=== PATIENT | female | born 1960 ===

== ENCOUNTER 2017-01-07 06:22 | Observation (INO) | payer OTHER ==
[2017-01-07 06:29] VITALS: BMI 37.8
[2017-01-07] MEDS ORDERED: Bupivacaine 0.5% Inj(30mL) ONE (07:13)
[2017-01-07] MEDS ORDERED: Thrombin Topical 5,000 IU Spray Kit ONE (07:13)
[2017-01-07] MEDS ORDERED: MethylPREDNISolone Depo 40 mg/ml Inj ONE (07:13)
[2017-01-07] MEDS ORDERED: Lidocaine 2% w Epi 1:100,000 Inj IJ ONE (07:13)
[2017-01-07] MEDS ORDERED: Liquid Adhesive TOP ONE (07:13)
[2017-01-07] MEDS ORDERED: Propofol 10 mg/ml Inj (20 ML) ONE (07:26)
[2017-01-07] MEDS ORDERED: Tranexamic Acid 1,000 MG in Sodium Chloride 0.9% 100 ML IVPB ONE (07:43)
[2017-01-07] MEDS ORDERED: Propofol 10 mg/ml Inj (100 ml) IV SCH (07:45)
[2017-01-07] MEDS ORDERED: Lactated Ringer's 1,000 ML IV ONE ×3 (08:55→12:45)
[2017-01-07] MEDS ORDERED: Succinylcholine 200 mg/10 ml Inj IV ONE (08:58)
[2017-01-07] MEDS ORDERED: Midazolam 2 MG/2 ML VIAL ONE ×2 (08:58→11:26)
[2017-01-07] MEDS ORDERED: Propofol 10 mg/ml Inj (100 ml) ONE (09:00)
[2017-01-07] MEDS ORDERED: Thrombin Topical 5,000 IU Spray Kit TOP ONE (11:06)
[2017-01-07] MEDS ORDERED: Vancomycin 1 g Inj IVPB ONE (11:06)
[2017-01-07] MEDS ORDERED: Absorbable Gelatin Sponge Size 100 TP ONE (11:06)
--- NOTE | 2017-01-07 11:21 | CARD ---
APPROVED REPORT EKG Measurement Heart [id number] <Conclusion> Normal sinus rhythm Normal ECG
[2017-01-07] MEDS ORDERED: MethylPREDNISolone Depo 40 mg/ml Inj IM ONE (12:40)
[2017-01-07] MEDS ORDERED: Bupivacaine 0.5% 50 ML IJ ONE (12:40)
[2017-01-07] MEDS ORDERED: Naloxone 0.4 mg/ml Inj (Adult) ONE (12:59)
[2017-01-07] MEDS ORDERED: HYDROmorphone 0.5 mg/0.5 ml ISec IVP PRN (13:17)
[2017-01-07] MEDS ORDERED: Lactated Ringer's 1,000 ML IV SCH (13:17)
[2017-01-07] MEDS ORDERED: Oxycodone/Acetaminophen 5/325 mg Tab PO PRN (13:54)
[2017-01-07] MEDS ORDERED: Pneumococcal 23-Valent Vaccine IM ONE (18:00)
[2017-01-07] MEDS: ceFAZolin 1 GM in Sodium Chloride 0.9% 100 ML IVPB SCH (18:20)
[2017-01-07] MEDS: Sodium Chloride 0.9% 1,000 ML IV SCH (20:25)
[2017-01-08] MEDS: ceFAZolin 1 GM in Sodium Chloride 0.9% 100 ML IVPB SCH (00:13)
[2017-01-08] MEDS: Sodium Chloride 0.9% 1,000 ML IV SCH (00:15)
[2017-01-08 07:29] LABS: ALB/GLOB RATIO 1.3 (1.0-2.1); ALKALINE PHOSPHATASE 49 U/L (38-126); ALT/SGPT 28 U/L (9-52); AST/SGOT 25 U/L (14-36); BILIRUBIN,TOTAL 0.6 mg/dl (0.2-1.3); BLOOD UREA NITROGEN 7 mg/dl (7-17); CARBON DIOXIDE 24 mmol/L (22-30); CHLORIDE 103 mmol/L (98-107); GFR AFRICAN-AMERICAN > 60; GLUCOSE,RANDOM 132 mg/dL (65-105); POTASSIUM 3.8 MMOL/L (3.6-5.0); SODIUM 137 mmol/l (132-148)
[2017-01-08 07:45] VITALS: BP 122/75; PULSE 78; RESP 20; TEMP 99.2; O2SAT 93
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
--- NOTE | 2017-01-11 11:05 | RAD ---
PROCEDURE: INTRAOPERATIVE FLUOROSCOPY HISTORY: ANTERIOR CERVICAL DISCECTOMY WITH FUSION COMPARISON: None TECHNIQUE: Intraoperative fluoroscopy was provided to the referring physician cyst in apparent cervical discectomy with fusion. FINDINGS: Two spot films fluoroscopic images submitted performed during the procedure demonstrating anterior approach to discectomy and cervical spinal fusion. Please see operative report for further detail. 6.6 seconds of fluoroscopy was utilized with a total radiation dose of 0.3 mGy utilized. IMPRESSION: Please see operative report for further detail.
== END 2017-01-08 12:13 | disposition home or self-care (01) ==
LOC: H.OPSURG 06:22 → H.MEDSURG1 13:54
PROVIDERS: ADMIT Orthopaedic Surgery Orthopaedic Surgery of the Spine; ATTEND Orthopaedic Surgery Orthopaedic Surgery of the Spine
DX: M50.221 Other cervical disc displacement at C4-C5 level (principal); E11.9 Type 2 diabetes mellitus without complications; G40.909 Epilepsy, unspecified, not intractable, without status epilepticus; Z23 Encounter for immunization
CPT/HCPCS: 36415; 63075; 63076; 80053; 82948; 86850; 86900; 88304; 90471; 90732; 93005; 96365; C1713; G0378; J0330; J0690; J1030; J1170; J2250; J2310; J2405; J2704; J3010; J7030; J7040; J7120